=== PATIENT | female | born 1940 | race Caucasian/White ===

== ENCOUNTER 2016-05-12 14:27 | Outpatient (CLI) | payer MEDICARE, OTHER | END 2016-05-12 14:28 | disposition home or self-care (01) | DX: L65.9 Nonscarring hair loss, unspecified (principal) ==

== ENCOUNTER 2016-06-13 14:25 | Outpatient (CLI) | payer MEDICARE, OTHER | END 2016-06-13 14:26 | disposition home or self-care (01) | DX: E78.5 Hyperlipidemia, unspecified (principal) ==

== ENCOUNTER 2016-08-15 15:03 | Outpatient (CLI) | payer MEDICARE, OTHER ==
[2016-08-15 15:40] LABS: ALBUMIN/GLOBULIN RATIO 1.4 (1.0-2.2); BILIRUBIN,TOTAL 0.8 mg/dL (0.2-1.0); CALCIUM 9.2 mg/dL (8.5-10.3); CREATININE 0.9 mg/dL (0.4-1.0); POTASSIUM 4.1 mmol/L (3.5-5.0); TOTAL PROTEIN 6.6 g/dL (6.7-8.2)
[2016-08-15] MEDS ORDERED: GADOBUTROL 7.5 MMOL/7.5 ML VIAL IVP ONE (16:30)
--- NOTE | 2016-08-16 10:10 | MRI Report ---
EXAM: MRI LUMBAR SPINE WITHOUT AND WITH CONTRAST EXAM DATE: 08/15/2016 04:43 PM. CLINICAL HISTORY: 76-year-old woman with chronic low back pain and scoliosis. COMPARISONS: 07/23/2010. TECHNIQUE: Multiplanar, multisequence T1-weighted and fluid-sensitive sequences of the lumbar spine f rom T12 to S1 before and after administration of intravenous contrast. IV contrast: 5.5 cc Gadavist. Other: None. FINDINGS: Surgical: Status post posterior fusion of L2-L5 with pedicle screws and posterior jw on the left onl y, new compared to the 2011 MRI. Spinal Cord: The conus terminates at L1-L2. Cauda equina nerve roots are normal in appearance. No abn ormal enhancement. Alignment: Convex left scoliosis centered at L4 is again demonstrated. Grade 1 retrolisthesis of L1 o n L2 measures approximately 3 mm, progressed compared to 2011 exam, and grade 1 anterolisthesis of L4 on L5 measures approximately 4 mm, unchanged Bone Marrow: Five [id number] lumbar vertebral bodies are present. Prominent degenerative endplat e edema is present at T12-L1, new compared to the 2011 exam. Prominent degenerative endplate edema at L1-L2 and L4-L5 on the prior exam has largely resolved, but Modic type II chronic degenerative and plate changes are present at this level now. Disk Levels/Facets: T12-L1: There is disk desiccation and height loss. Small broad-based disk bulge results in minimal na rrowing of the central canal and left neural foramen, progressed. L1-L2: There is disk desiccation and height loss. Retrolisthesis of L1 and L2 combined with posterior disk osteophyte complex results in mild narrowing of the central canal, not significantly changed. R etrolisthesis and mild facet hypertrophy also result in mild narrowing of the neural foramina bilater ally, unchanged. L2-L3: Interbody spacer is present, but there is moderate to severe disk height loss. Facet hypertrop hy results in mild narrowing of the central canal and mild narrowing of the right neural foramen, not significantly changed. L3-L4: Interbody spacer is present, but there is moderate disk height loss. Facet hypertrophy results in mild narrowing of the central canal, not significantly changed. No significant neural foraminal n arrowing. L4-L5: Interbody spacers present but there is moderate persistent disk height loss, right side worse than left. Anterolisthesis of L4 on L5 combined with small broad-based pseudo-disk bulge and facet hy pertrophy result in mild to moderate narrowing of the central canal, stable or improved. Anterolisthe sis and disk in the subarticular spaces result in moderate narrowing of the right neural foramen and mild narrowing on the left, improved on the right. L5-S1: There is disk desiccation and mild height loss. No significant central canal stenosis. Facet h ypertrophy and disk in the subarticular spaces result in mild to moderate narrowing of the left neura l foramen and mild narrowing on the right, unchanged. Spinal Canal: No enhancing masses within the spinal canal. No epidural abscess. Musculature: Post surgical changes are present in the posterior soft tissues from fusion. Artifact li mits local evaluation. Other: Visualized contents of the abdomen and pelvis are unremarkable. IMPRESSION: 1. Status post L2-L5 fusion with left-sided pedicle screws and posterior wj and interbody spacers, n ew compared to the 07/23/2010 MRI. 2. Convex left scoliosis centered at L4, similar to the 2011 exam. There is also grade 1 retrolisthes is of L1 on L2, progressed, and grade 1 anterolisthesis at L4 on L5, unchanged. 3. Multilevel degenerative disk changes with prominent bony endplate edema at T12-L1, new compared to 2011 exam. Previously seen bone marrow edema at L1-L2 and L4-L5 has largely resolved but now demonst rate chronic peroneal plate changes. 4. Degenerative changes result in the following: - T12-L1: Minimal narrowing of the central canal and left neural foramen, progressed. - L1-L2: Mild narrowing of the central canal, unchanged. Mild narrowing of the neural foramina bilate rally, unchanged. - L2-L3: Mild narrowing of the central canal, unchanged. Mild narrowing of the right neural foramen, unchanged. - L3-L4: Mild narrowing of the central canal, unchanged. - L4-L5: Mild to moderate narrowing of the central canal, stable or improved. Moderate narrowing of t he right neural foramen and mild narrowing on the left, improved. - L5-S1: Mild to moderate narrowing of the left neural foramen and mild narrowing on the right, uncha nged. Comment: The following findings are so common in adults without low back pain that while we report th eir presence, they must be interpreted with caution and in the context of the clinical situation. (Re pio Cabrera et al, Spine 2001) Prevalence of findings in patients without low back pain: Disk degeneration (any evidence): 92% Disk desiccation/T2 signal loss: 83% Disk height loss: 56% Disk bulge: 64% Disk protrusion: 32% Annular tear/high intensity zone: 38% [facility] Referring Provider Line: [phone] SITE ID: [id number]
== END 2016-08-15 15:04 | disposition home or self-care (01) ==
LOC: LAB 15:03
PROVIDERS: ATTEND Physician Assistant Medical
DX: M51.35 Other intervertebral disc degeneration, thoracolumbar region (principal); M51.36 Other intervertebral disc degeneration, lumbar region; M43.16 Spondylolisthesis, lumbar region; M41.86 Other forms of scoliosis, lumbar region; M47.896 Other spondylosis, lumbar region; Z98.1 Arthrodesis status; E78.5 Hyperlipidemia, unspecified
CPT/HCPCS: 72158; 80053; A9585

== ENCOUNTER 2016-08-19 18:49 | Outpatient (CLI) | payer MEDICARE, OTHER ==
--- NOTE | 2016-08-20 09:22 | XRAY Report ---
THREE-VIEW RIGHT KNEE: 08/19/2016 CLINICAL INDICATION: Arthritis. FINDINGS: AP, lateral, sunrise views of the right knee demonstrate moderate osteoarthritis, worst in the lateral femorotibial compartment. There is no evidence of acute fracture. No effusion is seen. IMPRESSION: MODERATE OSTEOARTHRITIS. JOB #: [id number] EXT JOB #:[id number]
== END 2016-08-19 18:50 | disposition home or self-care (01) ==
LOC: DI 18:49
PROVIDERS: ATTEND Physician Assistant Medical
DX: M17.11 Unilateral primary osteoarthritis, right knee (principal)

== ENCOUNTER 2017-02-19 14:22 | Outpatient (CLI) | payer MEDICARE, OTHER ==
--- NOTE | 2017-02-20 16:14 | Mammography Report ---
DIGITAL BILATERAL SCREENING MAMMOGRAM: 02/19/2017 COMPARISON STUDY: Mammogram of 02/11/2016. BREAST DENSITY: The breasts are extremely dense which may limit the sensitivity of mammography. TECHNIQUE: Routine CC and MLO projections were obtained of the breasts. FINDINGS: Parenchymal tissue within both breasts is extremely dense, which lowers the sensitivity of mammography; however, there are no dominant masses, suspicious microcalcifications, or secondary signs of malignancy. In comparison to the previous studies, there are no significant changes. IMPRESSION: No mammographic evidence of malignancy. PLAN: Screening mammography is recommended annually. BIRADS category 1 - negative. STANDARD QUALIFYING STATEMENTS 1. This examination was reviewed with the aid of Computed-Aided Detection (CAD). 2. A negative or benign imaging report should not delay biopsy if clinically suspicious findings are present. Consider surgical consultation if warranted. More than 5% of cancers are not identified by imaging. 3. Dense breasts may obscure an underlying neoplasm. JOB #: [id number] EXT JOB #: [id number] KRISTEN
== END 2017-02-19 14:23 | disposition home or self-care (01) ==
LOC: DI 14:22
PROVIDERS: ATTEND Physician Assistant Medical
DX: Z12.31 Encounter for screening mammogram for malignant neoplasm of breast (principal)
CPT/HCPCS: 77067

== ENCOUNTER 2017-08-04 14:51 | Outpatient (CLI) | payer MEDICARE, OTHER | END 2017-08-04 14:52 | disposition critical access hospital (66) | LOC: EMS 14:51 | PROVIDERS: ATTEND Surgery | DX: R42 Dizziness and giddiness (principal); R11.0 Nausea | CPT/HCPCS: A0425; A0429 ==

== ENCOUNTER 2017-08-04 15:12 | Emergency (ER) | payer MEDICARE, OTHER ==
--- NOTE | 2017-08-04 16:05 | ED Physician Documentation ---
History of Present Illness - Stated complaint Stated Complaint: DIZZY - Chief complaint Chief Complaint: Neuro - History obtained from History obtained from: Patient - History of Present Illness Timing: Yesterday - Additonal information Additional information: 77 y/o female with no particular history has been working hard to clear out her storage unit and get her house on the market and she noticed a firm mass on the medial aspect of the right calf yesterday and she has come in to see her doctor today and was sent to the ED to get duplex scanning to rule out DVT. She has noticed some light headedness when she is up and about and when questioned she has not had as much to drink as usual, she has not been sleeping well and she is not eating much. 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: None : Incontinence HEENT: None Psych: None Musculoskeletal: Osteoarthritis Derm: None - Past Surgical History Past Surgical History: Yes General: Colonoscopy Ortho: Spine surgery /MACHINE STEAK TENDERIZER: Tubal ligation, Hysterectomy - Present Medications Home Medications: Ambulatory Orders Medication Instructions Recorded Confirmed Aspirin [Aspir 81] 81 mg PO DAILY 09/02/12 09/23/14 Calcium [Calcio [place]] 500 mg PO DAILY 09/02/12 09/23/14 Flaxseed Oil 1,000 mg PO DAILY 09/02/12 09/23/14 Multivitamin [Multivitamins] 1 each PO DAILY 09/02/12 09/23/14 [place]-3 Fatty Acids [Fish Oil] 500 mg PO DAILY 09/02/12 09/23/14 Pramipexole [Mirapex] 0.25 mg PO DAILY 09/02/12 09/23/14 Sertraline HCl [Zoloft] 50 mg PO DAILY 09/02/12 09/23/14 Ubidecarenone [Co Q-10] 10 mg PO DAILY 09/02/12 09/23/14 Docusate Sodium 100Mg Capsule 100 mg PO DAILY #10 capsule 09/23/14 [Colace] Ibuprofen 400 mg PO TID #15 tablet 09/23/14 Oxycodone HCl/Acetaminophen 1 each PO Q6H PRN #15 tablet 09/23/14 [Percocet 5-325 mg Tablet] - Allergies Allergies/Adverse Reactions: Allergies Allergy/AdvReac Type Severity Reaction Status Date / Time acetaminophen [From Vicodin] AdvReac Intermediate Nausea Verified 08/04/17 15:23 erythromycin base AdvReac Intermediate Nausea Verified 08/04/17 15:23 [Erythromycin Base] hydrocodone bitartrate * AdvReac Intermediate Nausea Verified 08/04/17 15:23 [From Vicodin] metronidazole AdvReac Intermediate Nausea Verified 08/04/17 15:23 morphine AdvReac Intermediate Nausea Verified 08/04/17 15:23 Penicillins AdvReac Intermediate Nausea Verified 08/04/17 15:23 sulfamethoxazole AdvReac Intermediate Nausea Verified 08/04/17 15:23 [From Bactrim] tramadol AdvReac Intermediate Nausea Verified 08/04/17 15:23 trimethoprim [From Bactrim] AdvReac Intermediate Nausea Verified 08/04/17 15:23 - Social History Does the pt smoke?: No Smoking Status: Never smoker Does the pt drink ETOH?: No Does the pt have substance abuse?: No - Immunizations Immunizations are current?: Yes - POLST Patient has POLST: No PD ED PE NORMAL - Vitals Vital signs reviewed: Yes (systolic htn with wide pulse pressure) - General General: Alert and oriented X 3, No acute distress, Well developed/nourished - HEENT HEENT: Atraumatic, PERRL, EOMI - Respiratory Respiratory: No respiratory distress - Derm Derm: Normal color, Warm and dry, No rash - Extremities Extremities: Other (There is post inflamitory hyperpigmentaion bilaterally and there is no edema there is a firm palpable mass to the medial right calf consistent with a thrombosed vein or a bruise) - Neuro Neuro: No motor deficit, No sensory deficit Eye Opening: Spontaneous Motor: Obeys Commands Verbal: Oriented GCS Score: 15 - Psych Psych: Normal mood, Normal affect Results - Vitals Vitals: Vital Signs - 24 hr 08/04/17 08/04/17 08/04/17 15:12 15:54 17:38 Temperature 36.1 C L Heart Rate 60 70 70 Respiratory 16 16 16 Rate Blood Pressure 155/60 H 145/63 H 173/69 H O2 Saturation 100 100 100 Oxygen O2 Source Room air - EKG (time done) 1536 Rate: Rate (enter#) (59) Rhythm: Sinus tachycardia Ischemia: Normal ST segments Compare to prior EKG: Old EKG unavailable Computer interpretation: Agree with computer - Labs Labs: Laboratory Tests 08/04/17 16:12 Urine Color YELLOW Urine Clarity CLEAR Urine pH 7.0 Ur Specific Wisdom 1.020 Urine Protein NEGATIVE Urine Glucose (UA) NEGATIVE Urine Ketones NEGATIVE Urine Occult Blood NEGATIVE Urine Nitrite NEGATIVE Urine Bilirubin NEGATIVE Urine Urobilinogen 0.2 (NORMAL) Ur Leukocyte Esterase NEGATIVE Ur Microscopic Review NOT INDICATED Urine Culture Comments NOT INDICATED - Rads (name of study) duplex right viens Radiology: Prelim report reviewed (Impression: No evidence for deep venous thrombosis.), EMP read indepedently, See rad report Procedures - IVC sono (time) 1550 Bedside IVC sono: IVC measures (cm) (1.08), IVC collapsed c insp (cm) (complete) , Dehydration (est 1 liter deficit) PD MEDICAL DECISION MAKING - ED course Complexity details: reviewed results, re-evaluated patient, considered differential, d/w patient ED course: 77 y/o female with light headedness and a mass in the leg is dehydrated on interrogation of the IVC. She is able to take PO fluids and this is encouraged. A dupelx study is ordered. The duplex is negative and she is diagnosed with a bruise to the calf and she is able to adequately hydrate in the ED and she feels improved. Departure - Departure Disposition: 01 Home, Self Care Clinical Impression: Dehydration Contusion of right calf Qualifiers: Encounter type: initial encounter Qualified Code(s): S80.11XA - Contusion of right lower leg, initial encounter Condition: Stable Instructions: ED Contusion Lower Ext, ED Dehydration Follow-Up: Mariel Lui PA-C [Primary Care Provider] - Discharge Date/Time: 08/04/17 17:40
[2017-08-04 16:21] LABS: BILIRUBIN,URINE NEGATIVE (NEGATIVE); GLUCOSE, URINE (UA) NEGATIVE (NEGATIVE); KETONES,URINE (UA) NEGATIVE (NEGATIVE); LEUKOCYTE ESTERASE, URINE NEGATIVE (NEGATIVE); NITRITE,URINE NEGATIVE (NEGATIVE); OCCULT BLOOD,URINE NEGATIVE (NEGATIVE); PROTEIN,URINE NEGATIVE (NEGATIVE); UROBILINOGEN,URINE 0.2 (NORMAL) E.U./dL (NORMAL)
[2017-08-04 16:36] LABS: CLARITY,URINE CLEAR (CLEAR)
--- NOTE | 2017-08-04 17:00 | Ultrasound Report ---
EXAM: RIGHT LOWER EXTREMITY VENOUS ULTRASOUND EXAM DATE: 08/04/2017 04:46 PM. CLINICAL HISTORY: Tender thrombosed calf vein. COMPARISON: None. TECHNIQUE: Real-time sonographic vascular imaging was performed by the medical records assistant through the lower extremity utilizing both color-flow and Doppler spectral analysis. Multiple ict sales representative static marcia ges were saved for review. FINDINGS: Common Femoral Vein (CFV): Normal. CFV-GSV Junction: Normal. Profunda Femoral Vein (PFV): Normal. Femoral Vein (FV) Prox: Normal. Femoral Vein (FV) Mid: Normal. Femoral Vein (FV) Dist: Normal. Popliteal Vein: Normal. Posterior Tibial Veins: Normal. Peroneal Veins: Normal. Contralateral Side CFV: Normal. Other: None. IMPRESSION: No evidence for deep venous thrombosis. [facility] Referring Provider Line: [phone] SITE ID: [id number]
[2017-08-04 17:41] VITALS: BP 173/69
== END 2017-08-04 17:40 | disposition home or self-care (01) ==
LOC: EDUNIT# → ED 15:12
DX: E86.0 Dehydration (principal); S80.11XA Contusion of right lower leg, initial encounter; Z79.82 Long term (current) use of aspirin
CPT/HCPCS: 81001; 81003; 87086; 93005; 99284

== ENCOUNTER 2018-03-17 15:31 | Outpatient (CLI) | payer MEDICARE, OTHER ==
[2018-03-17 16:16] LABS: BASOPHILS % (AUTO) 0.4 %; EOSINOPHILS # (AUTO) 0.1 10^3/uL (0.0-0.7); EOSINOPHILS % (AUTO) 1.3 %; HGB - HEMOGLOBIN 13.9 g/dL (12.0-16.0); LYMPHOCYTES # (AUTO) 1.6 10^3/uL (1.5-3.5); LYMPHOCYTES % (AUTO) 32.3 %; MEAN CORPUSCULAR HEMOGLOBIN 27.9 pg (27.0-31.0); MEAN CORPUSCULAR HGB CONC 32.5 g/dL (32.0-36.0); MEAN CORPUSCULAR VOLUME 85.9 fL (81.0-99.0); MONOCYTES # (AUTO) 0.2 10^3/uL (0.0-1.0); PLT - PLATELET COUNT 211 10^3/uL (130-450); RED BLOOD COUNT 4.99 10^6/uL (4.20-5.40); RED CELL DISTRIBUTION WIDTH 13.9 % (12.0-15.0)
[2018-03-17 16:30] LABS: ALBUMIN 4.1 g/dL (3.2-5.5); ALBUMIN/GLOBULIN RATIO 1.5 (1.0-2.2); ALKALINE PHOSPHATASE 98 IU/L (42-121); ALT ALANINE AMINOTRANSFERASE 28 IU/L (10-60); AST ASPARTATE AMINOTRANSFERASE 30 IU/L (10-42); BILIRUBIN,TOTAL 0.9 mg/dL (0.2-1.0); BUN - BLOOD UREA NITROGEN 19 mg/dL (6-20); CALCIUM 8.8 mg/dL (8.5-10.3); CARBON DIOXIDE - CO2 27 mmol/L (21-32); CHLORIDE 104 mmol/L (101-111); CHOLESTEROL 254 mg/dL; CREATININE 0.8 mg/dL (0.4-1.0); GFR - MDRD 69 (>89); GLUCOSE 92 mg/dL (70-100); HDL CHOLESTEROL 86 mg/dL; LDL CHOLESTEROL,CALCULATED 153 mg/dL; LDL/HDL RATIO 1.8 (<4.4); SODIUM 138 mmol/L (135-145); TOTAL PROTEIN 6.9 g/dL (6.7-8.2); VLDL CHOLESTEROL 15 mg/dL
[2018-03-17 16:41] LABS: THYROID STIMULATING HORMONE 5.67 uIU/mL (0.34-5.60)
[2018-03-17 16:47] LABS: FERRITIN 43.8 ng/mL (11.0-306.8)
== END 2018-03-17 15:32 | disposition home or self-care (01) ==
LOC: LAB 15:31
PROVIDERS: ATTEND Physician Assistant Medical
DX: E78.5 Hyperlipidemia, unspecified (principal); L65.9 Nonscarring hair loss, unspecified
CPT/HCPCS: 36415; 80053; 80061; 82728; 83721; 84443; 85025

== ENCOUNTER 2018-04-30 14:07 | Outpatient (CLI) | payer MEDICARE, OTHER ==
[2018-04-30 19:12] LABS: BASOPHILS % (AUTO) 0.5 %; EOSINOPHILS # (AUTO) 0.1 10^3/uL (0.0-0.7); EOSINOPHILS % (AUTO) 1.2 %; HGB - HEMOGLOBIN 13.7 g/dL (12.0-16.0); LYMPHOCYTES # (AUTO) 1.6 10^3/uL (1.5-3.5); LYMPHOCYTES % (AUTO) 30.1 %; MEAN CORPUSCULAR HEMOGLOBIN 27.9 pg (27.0-31.0); MEAN CORPUSCULAR HGB CONC 32.1 g/dL (32.0-36.0); MEAN PLATELET VOLUME 8.5 fL (7.9-10.8); MONOCYTES # (AUTO) 0.3 10^3/uL (0.0-1.0); MONOCYTES % (AUTO) 5.1 %; NEUTROPHILS # (AUTO) 3.3 10^3/uL (1.5-6.6); NEUTROPHILS % (AUTO) 63.1 %; PLT - PLATELET COUNT 216 10^3/uL (130-450); RED BLOOD COUNT 4.91 10^6/uL (4.20-5.40); WHITE BLOOD COUNT 5.2 x10^3/uL (4.8-10.8)
[2018-04-30 20:00] LABS: ALBUMIN 3.9 g/dL (3.2-5.5); ALBUMIN/GLOBULIN RATIO 1.3 (1.0-2.2); CALCIUM 9.1 mg/dL (8.5-10.3); CREATININE 0.9 mg/dL (0.4-1.0); TOTAL PROTEIN 6.9 g/dL (6.7-8.2)
[2018-04-30 20:14] LABS: THYROID STIMULATING HORMONE 4.41 uIU/mL (0.34-5.60)
[2018-04-30 20:15] LABS: FREE T4 (FREE THYROXINE) 0.79 ng/dL (0.58-1.64)
== END 2018-04-30 14:08 | disposition home or self-care (01) ==
LOC: LAB.WCP 14:07
PROVIDERS: ATTEND Physician Assistant
DX: L03.115 Cellulitis of right lower limb (principal); E03.9 Hypothyroidism, unspecified
CPT/HCPCS: 36415; 80053; 82306; 84439; 84443; 84481; 85025

== ENCOUNTER 2018-05-11 21:58 | Outpatient (CLI) | payer MEDICARE, OTHER ==
--- NOTE | 2018-05-12 15:25 | Ultrasound Report ---
Reason: VENOUS STASIS EDEMA WITH ULCER,CELLULITIS,LEG,RIGH Procedure Date: 05/11/2018 Accession Number: [id number] / [id number] Procedure: US - Ankle Brachial Index CPT Code: FULL RESULT: EXAM: BILATERAL ANKLE/BRACHIAL INDEX EXAM DATE: 05/11/2018 10:37 PM. CLINICAL HISTORY: VENOUS STASIS EDEMA WITH ULCER,CELLULITIS,LEG, right. COMPARISON: ANKLE BRACHIAL INDEX 01/14/2017 2:15 PM. TECHNIQUE: A blood pressure cuff and pulse volume recording Doppler ultrasound was used to evaluate the arterial pressures in the arms and ankle. No images were acquired. FINDINGS: Brachial pressure: Right brachial artery: 128/29 mmHg. Left brachial artery: 147/49 mmHg. Right ankle pressures: Dorsalis pedis artery: 129/66 mmHg Left ankle pressures: Dorsalis pedis artery: 124/65 mmHg Calf arteries: RIGHT: TUG MASTER 58 cm/s peak systolic velocity, monophasic waveform. Dorsalis pedis artery 63 cm/s with monophasic waveform. LEFT: Posterior tibial artery 66 cm/s with monophasic waveform. Left dorsalis pedis artery 13 cm/s with monophasic waveform. IMPRESSION: 1. Right ankle/brachial index: 0.9, acceptable. 2. Left ankle/brachial index: 0.8 is abnormal, indicating some arterial disease. 3. Monophasic spectral Doppler waveforms within bilateral posterior tibial and dorsalis pedis arteries. ANKLE/BRACHIAL INDEX REFERENCE STANDARDS 1.0-1.4: Normal 0.90-0.99: Borderline < 0.9: Abnormal [facility]
== END 2018-05-11 21:59 | disposition home or self-care (01) ==
LOC: DI 21:58
PROVIDERS: ATTEND Physician Assistant Medical
DX: I87.319 Chronic venous hypertension (idiopathic) with ulcer of unspecified lower extremity (principal); L03.115 Cellulitis of right lower limb; I70.202 Unspecified atherosclerosis of native arteries of extremities, left leg
CPT/HCPCS: 93922

== ENCOUNTER 2018-05-13 15:30 | Outpatient (CLI) | payer MEDICARE, OTHER ==
--- NOTE | 2018-05-14 09:25 | Mammography Report ---
Reason: Annual Screening Procedure Date: 05/13/2018 Accession Number: [id number] / [id number] Procedure: ZACH - Screening Mammo Dig Bilat CPT Code: FULL RESULT: EXAM: Screening Mammo Dig Bilat DATE: 05/13/2018 4:06 PM CLINICAL HISTORY: Screening encounter. Personal history of uterine cancer. History of breast biopsy in the 1970s, benign. Family history of breast cancer in the mother at age 79. TECHNIQUE: Bilateral CC, right laterally exaggerated CC, right MLO and left MLO views were obtained. The combination of views is the best possible imaging outcome due to kyphosis. COMPARISON: 02/19/2017 through 07/23/2010. FINDINGS: The breasts demonstrate heterogeneously dense fibroglandular parenchyma bilaterally. There are typically benign coarse calcifications. A 1 cm mass in the upper central left breast demonstrates long-term stability, typically benign. No suspicious masses, clustered microcalcifications, or regions of architectural distortion are identified. IMPRESSION: Benign findings RECOMMENDATION: Routine annual screening unless otherwise clinically indicated. BIRADS CATEGORY 2: Benign findings STANDARD QUALIFYING STATEMENTS: 1. This examination was reviewed with the aid of Computer-Aided Detection (CAD). 2. A negative or benign imaging report should not delay biopsy if clinically suspicious findings are present. Consider surgical consultation if warrented. More than 5% of cancers are not identified by imaging. 3. Dense breasts may obscure an underlying neoplasm.
== END 2018-05-13 15:31 | disposition home or self-care (01) ==
LOC: DI 15:30
DX: Z12.31 Encounter for screening mammogram for malignant neoplasm of breast (principal); Z80.3 Family history of malignant neoplasm of breast; Z85.42 Personal history of malignant neoplasm of other parts of uterus
CPT/HCPCS: 77067

== ENCOUNTER 2018-05-26 14:40 | Outpatient (CLI) | payer MEDICARE, OTHER | END 2018-05-26 14:41 | disposition home or self-care (01) | LOC: LAB.WCP 14:40 | PROVIDERS: ATTEND Physician Assistant Medical | DX: E03.9 Hypothyroidism, unspecified (principal) | CPT/HCPCS: 36415; 84443 ==

== ENCOUNTER 2018-06-09 22:03 | Outpatient (CLI) | payer MEDICARE, OTHER ==
--- NOTE | 2018-06-10 01:00 | Ultrasound Report ---
Reason: EDEMA LEG Procedure Date: 06/09/2018 Accession Number: [id number] / [id number] Procedure: US - Duplex Ext Veins Right CPT Code: FULL RESULT: EXAM: RIGHT LOWER EXTREMITY VENOUS ULTRASOUND EXAM DATE: 06/09/2018 11:58 PM. CLINICAL HISTORY: Edema leg. COMPARISON: DUPLEX EXT VEINS RIGHT 08/04/2017 4:29 PM. TECHNIQUE: Real-time sonographic vascular imaging was performed by the golf course ranger through the lower extremity utilizing both color-flow and Doppler spectral analysis. Multiple motor vehicle field representative static images were saved for review. FINDINGS: Common Femoral Vein (CFV): Normal. CFV-GSV Junction: Normal. Profunda Femoral Vein (PFV): Normal. Femoral Vein (FV) Prox: Normal. Femoral Vein (FV) Mid: Normal. Femoral Vein (FV) Dist: Normal. Popliteal Vein: Normal. Calf Veins: Proximal portions are patent. Distal portions could not be evaluated due to bandage material. Contralateral Common Femoral Vein: Without thrombus. Other: Borderline enlarged right-sided groin lymph node measuring 1.5 x 1.1 x 3.3 cm. Normal fatty hilum. Additional borderline enlarged 1.6 x 0.7 x 1.1 cm lymph node within the right groin as well. IMPRESSION: No evidence for deep venous thrombosis. [facility] The call report notification system was initiated by Dr. Leonardo Gleason at 12:58 AM on 06/10/2018. The above call report findings were discussed with Mariel Lui (PAC) by Dr. Leonardo Gleason at 01:00 AM on 06/10/2018.
== END 2018-06-09 22:04 | disposition home or self-care (01) ==
LOC: DI 22:03
PROVIDERS: ATTEND Physician Assistant Medical
DX: R60.0 Localized edema (principal)

== ENCOUNTER 2018-07-29 23:28 | Outpatient (CLI) | payer MEDICARE, OTHER ==
--- NOTE | 2018-07-30 01:33 | Ultrasound Report ---
Reason: EDEMA LEFT LEG Procedure Date: 07/29/2018 Accession Number: [id number] / [id number] Procedure: US - Duplex Ext Veins Left CPT Code: FULL RESULT: EXAM: LEFT LOWER EXTREMITY VENOUS ULTRASOUND EXAM DATE: 07/29/2018 11:59 PM. CLINICAL HISTORY: EDEMA LEFT LEG. COMPARISON: None. TECHNIQUE: Real-time sonographic vascular imaging was performed by the electrical experimental mechanic through the lower extremity utilizing both color-flow and Doppler spectral analysis. Multiple players club representative static images were saved for review. FINDINGS: Common Femoral Vein (CFV): No evidence of thrombus. CFV-GSV Junction: No evidence of thrombus. Profunda Femoral Vein (PFV): No evidence of thrombus. Femoral Vein (FV) Prox: No evidence of thrombus. Femoral Vein (FV) Mid: No evidence of thrombus. Femoral Vein (FV) Dist: No evidence of thrombus. Popliteal Vein: No evidence of thrombus. Posterior Tibial Veins: No evidence of thrombus. Peroneal Veins: No evidence of thrombus. Contralateral CFV: No evidence of thrombus. Other: Mild subcutaneous edema overlying the left calf. IMPRESSION: No evidence for deep venous thrombosis. [facility] The call report notification system was initiated by Dr. Leonardo Gleason at 01:32 AM on 07/30/2018.
== END 2018-07-29 23:29 | disposition home or self-care (01) ==
LOC: DI 23:28
PROVIDERS: ATTEND Physician Assistant Medical
DX: R60.0 Localized edema (principal)

== ENCOUNTER 2018-12-22 12:30 | Day surgery (SDC) | payer MEDICARE, OTHER ==
[~2018-12-22 12:30] MED LIST: SODIUM/POTASSIUM/MAG SULFATES 354 ML PREP KIT PO SCH
[2018-12-22] MEDS ORDERED: LACTATED RINGERS 1,000 ML IV ONE (13:07)
[2018-12-22 15:05] VITALS: BP 124/72
== END 2018-12-22 12:31 | disposition home or self-care (01) ==
LOC: SDS 12:30
PROVIDERS: ATTEND Surgery
PROC: 0DJD8ZZ Inspection of Lower Intestinal Tract, Via Natural or Artificial Opening Endoscopic (ICD-10-PCS; principal; 2018-12-22 13:15)
DX: Z12.11 Encounter for screening for malignant neoplasm of colon (principal); K64.8 Other hemorrhoids; K59.8 Other specified functional intestinal disorders; K62.89 Other specified diseases of anus and rectum; E03.9 Hypothyroidism, unspecified; F41.9 Anxiety disorder, unspecified; G25.81 Restless legs syndrome; R60.0 Localized edema; Z86.010 Personal history of colon polyps
CPT/HCPCS: A9270; G0105; J7120

== ENCOUNTER 2019-04-07 15:16 | Outpatient (CLI) | payer MEDICARE, OTHER ==
[2019-04-07 15:33] LABS: BASOPHILS % (AUTO) 0.3 %; EOSINOPHILS % (AUTO) 0.6 %; HGB - HEMOGLOBIN 14.5 g/dL (12.0-16.0); LYMPHOCYTES # (AUTO) 2.4 10^3/uL (1.5-3.5); LYMPHOCYTES % (AUTO) 34.4 %; MEAN CORPUSCULAR HEMOGLOBIN 27.9 pg (27.0-31.0); MEAN CORPUSCULAR HGB CONC 32.5 g/dL (32.0-36.0); MEAN CORPUSCULAR VOLUME 85.8 fL (81.0-99.0); MEAN PLATELET VOLUME 9.5 fL (7.9-10.8); MONOCYTES # (AUTO) 0.4 10^3/uL (0.0-1.0); MONOCYTES % (AUTO) 5.6 %; NEUTROPHILS # (AUTO) 4.1 10^3/uL (1.5-6.6); NEUTROPHILS % (AUTO) 58.8 %; PLT - PLATELET COUNT 228 10^3/uL (130-450); RED CELL DISTRIBUTION WIDTH 13.4 % (12.0-15.0); WHITE BLOOD COUNT 6.9 x10^3/uL (4.8-10.8)
[2019-04-07 15:49] LABS: ALBUMIN 4.6 g/dL (3.2-5.5); ALBUMIN/GLOBULIN RATIO 1.5 (1.0-2.2); ALKALINE PHOSPHATASE 98 IU/L (42-121); ALT ALANINE AMINOTRANSFERASE 27 IU/L (10-60); AST ASPARTATE AMINOTRANSFERASE 30 IU/L (10-42); BUN - BLOOD UREA NITROGEN 25 mg/dL (6-20); CALCIUM 9.1 mg/dL (8.5-10.3); CARBON DIOXIDE - CO2 25 mmol/L (21-32); CHLORIDE 104 mmol/L (101-111); CHOL/HDL RATIO 2.9 (<4.4); CHOLESTEROL 291 mg/dL; CREATININE 0.8 mg/dL (0.4-1.0); GFR - MDRD 69 (>89); GLUCOSE 97 mg/dL (70-100); HDL CHOLESTEROL 101 mg/dL; LDL CHOLESTEROL,CALCULATED 171 mg/dL; LDL/HDL RATIO 1.7 (<4.4); SODIUM 142 mmol/L (135-145); TOTAL PROTEIN 7.6 g/dL (6.7-8.2); VLDL CHOLESTEROL 19 mg/dL
== END 2019-04-07 15:17 | disposition home or self-care (01) ==
LOC: LAB 15:16
PROVIDERS: ATTEND Physician Assistant Medical
DX: E78.5 Hyperlipidemia, unspecified (principal); E03.9 Hypothyroidism, unspecified; K92.1 Melena
CPT/HCPCS: 36415; 80053; 80061; 83721; 84443; 85025

== ENCOUNTER 2019-04-13 08:00 | Outpatient (CLI) | payer MEDICARE, OTHER ==
[2019-04-13 20:09] LABS: FREE T4 (FREE THYROXINE) 1.1 ng/dL (0.58-1.64)
== END 2019-04-13 23:59 | disposition home or self-care (01) ==
LOC: LAB.WCP 08:00
PROVIDERS: ATTEND Physician Assistant Medical
DX: E03.9 Hypothyroidism, unspecified (principal); R41.3 Other amnesia
CPT/HCPCS: 36415; 82607; 84439; 84481

== ENCOUNTER 2019-04-13 15:50 | Outpatient (CLI) | payer MEDICARE, OTHER ==
--- NOTE | 2019-04-14 13:04 | XRAY Report ---
Reason: CLEMENTE Procedure Date: 04/13/2019 Accession Number: [id number] / [id number] Procedure: WCP - Chest 2 View X-Ray CPT Code: 68114 Final Report FULL RESULT: EXAM: CHEST RADIOGRAPHY EXAM DATE: 04/13/2019 03:50 PM. CLINICAL HISTORY: Dyspnea on exertion COMPARISON: None. TECHNIQUE: 2 views. FINDINGS: Lungs/Pleura: Normal volumes. No focal infiltrate or bronchial wall thickening. No evidence of edema. No pleural effusion or pneumothorax. Mediastinum: Normal cardiomediastinal contour. Other: Degenerative changes in the spine. Mild S-shaped curvature of the thoracolumbar spine. Posterior fusion hardware in the cervical and upper thoracic spine. Partially imaged posterior fusion hardware in the lumbar spine. IMPRESSION: No acute cardiopulmonary abnormality. [facility]
== END 2019-04-13 23:59 | disposition home or self-care (01) ==
LOC: DI.WCP 15:50
PROVIDERS: ATTEND Physician Assistant Medical
DX: R06.09 Other forms of dyspnea (principal)
CPT/HCPCS: 71046

== ENCOUNTER 2019-04-26 13:39 | Outpatient (CLI) | payer MEDICARE, OTHER ==
[2019-04-26] MEDS ORDERED: GADOBUTROL 7.5 MMOL/7.5 ML VIAL ONE (16:23)
[2019-04-26] MEDS ORDERED: GADOBUTROL 7.5 MMOL/7.5 ML VIAL IVP ONE (17:15)
--- NOTE | 2019-04-26 18:57 | MRI Report ---
Reason: MEMORY LOSS Procedure Date: 04/26/2019 Accession Number: [id number] / [id number] Procedure: MRI - Brain W/WO CPT Code: Final Report FULL RESULT: EXAM: MRI BRAIN WITHOUT AND WITH CONTRAST EXAM DATE: 04/26/2019 05:42 PM. CLINICAL HISTORY: Memory loss. Worsening memory over the past year. COMPARISON: None. TECHNIQUE: Multiplanar, multisequence T1-weighted and fluid-sensitive MR sequences of the brain were performed before and after administration of intravenous contrast. Sequences optimized for routine evaluation. Other: None. IV Contrast: 5 cc Gadavist. FINDINGS: Brain Volume: Normal for age. Parenchyma: No acute hemorrhage, mass, or infarct. Minimal confluent periventricular white matter with scattered punctate deep and subcortical white matter T2/FLAIR bright signal is seen in the cerebral hemispheres. No abnormal enhancement. Ventricles/Cisterns: No hydrocephalus. No abnormal extra-axial fluid collection or hemorrhage. Orbits: Unremarkable. Note is made of bilateral lens removal. Sella Turcica: The pituitary gland, cavernous sinuses, suprasellar cistern and optic chiasm are unremarkable. IAC: Symmetric and unremarkable. Vasculature: Normal signal flow void is seen in the major arterial structures at the skull base. The dural sinuses are patent and enhance normally. Sinuses: Partial opacification is seen throughout right mastoid air cells and involving inferior left mastoid air cells. Mild mucosal thickening is seen inferiorly in the maxillary antra. Bones: No focal pathologic appearing marrow signal changes. Postoperative change is seen in partially visualized cervical spine. Other: The visualized nasopharynx and infratemporal fossa are unremarkable. IMPRESSION: 1. No acute intracranial abnormality. No infarct, mass, hemorrhage, or abnormal enhancement. 2. Minimal white matter T2/FLAIR bright signal is seen in the cerebral hemispheres. This is not an unexpected finding in a patient of age 79 years. This can be seen secondary to small vessel ischemic change. 3. Opacification is seen throughout right mastoid air cells and inferior left mastoid air cells. [facility]
== END 2019-04-26 13:40 | disposition home or self-care (01) ==
LOC: DI 13:39
PROVIDERS: ATTEND Physician Assistant Medical
DX: R41.3 Other amnesia (principal)
CPT/HCPCS: 70553; A9585

== ENCOUNTER 2019-08-11 19:02 | Outpatient (CLI) | payer MEDICARE, OTHER ==
--- NOTE | 2019-08-11 21:22 | Ultrasound Report ---
Reason: ACUTE AMBOLISM AND THROMBOSIS OF UNSPECIFIED VEIN. DVT Procedure Date: 08/11/2019 Accession Number: [id number] / [id number] Procedure: US - Duplex Ext Veins Right CPT Code: Final Report FULL RESULT: EXAM: RIGHT LOWER EXTREMITY VENOUS ULTRASOUND EXAM DATE: 08/11/2019 08:06 PM. CLINICAL HISTORY: Right leg pain COMPARISON: DUPLEX EXT VEINS RIGHT 06/09/2018 11:26 PM. TECHNIQUE: Real-time sonographic vascular imaging was performed by the bicycle fitter through the lower extremity utilizing both color-flow and Doppler spectral analysis. Multiple computer help desk representative static images were saved for review. FINDINGS: Common Femoral Vein (CFV): Normal. CFV-GSV Junction: Normal. Profunda Femoral Vein (PFV): Normal. Femoral Vein (FV) Prox: Normal. Femoral Vein (FV) Mid: Normal. Femoral Vein (FV) Dist: Normal. Popliteal Vein: Normal. Posterior Tibial Veins: Normal. Peroneal Veins: Normal. Other: None. IMPRESSION: No evidence for deep venous thrombosis. [facility]
== END 2019-08-11 19:03 | disposition home or self-care (01) ==
LOC: DI 19:02
PROVIDERS: ATTEND Registered Nurse
DX: I82.491 Acute embolism and thrombosis of other specified deep vein of right lower extremity (principal)

== ENCOUNTER 2019-11-01 14:18 | Outpatient (CLI) | payer MEDICARE, OTHER ==
--- NOTE | 2019-11-01 17:07 | DEXA Report ---
PROCEDURE: Dexa Spine and/or Hip INDICATIONS: POST MENOPAUSAL TECHNIQUE: Dual energy x-ray absorptiometry (DXA) was performed on a [employer] System. Regions measur ed are the AP Spine, femoral neck, and if needed forearm. COMPARISON: 08/21/2009, not currently available for review FINDINGS: Left Hip: Bone Mineral Density 1.005 g/cm/cm,T score 0, within normal limits Left Femoral Neck: Bone Mineral Density 0.872 g/cm/cm, T score -1.2, minimal osteopenia Left forearm: Bone Mineral Density 0.471 g/cm/cm, T score -3.4, osteoporosis (T score greater or equal to -1.0: NORMAL) (T score from -1.1 to -2.4: OSTEOPENIA) (T score less than or equal to -2.5 to: OSTEOPOROSIS) Impression: Osteoporosis within the left forearm with minimal osteopenia in the left femoral neck. Patients with diagnosis of osteoporosis or osteopenia should have regular bone mineral density assess ment. For those eligible for Medicare, routine testing is allowed once every 2 years. Testing frequ ency can be increased for patients who have rapidly progressing disease or for those who are receivin g medical therapy to restore bone mass. Reviewed by: Meaghan Blakely MD on 11/01/2019 5:05 PM PDT Approved by: Meaghan Blakely MD on 11/01/2019 5:05 PM PDT Station ID: [id number]
== END 2019-11-01 14:19 | disposition home or self-care (01) ==
LOC: DI 14:18
PROVIDERS: ATTEND Physician Assistant Medical
DX: M81.0 Age-related osteoporosis without current pathological fracture (principal); M85.852 Other specified disorders of bone density and structure, left thigh; Z78.0 Asymptomatic menopausal state
CPT/HCPCS: 77080; 77081

== ENCOUNTER 2019-11-23 14:16 | Outpatient (CLI) | payer MEDICARE, OTHER ==
--- NOTE | 2019-11-28 12:07 | Mammography Report ---
BILATERAL DIGITAL SCREENING MAMMOGRAM 3D/2D: 11/23/2019 CLINICAL: Routine screening. Comparison is made to exams dated: 05/13/2018 mammogram, 04/22/2016 mammogram, 02/11/2016 mammogram, mammogram, 11/08/2013 mammogram, and 09/17/2012 mammogram - [facility]. There are scattered fibroglandular elements in both breasts. No significant masses, calcifications, or other findings are seen in either breast. There has been no significant interval change. IMPRESSION: NEGATIVE There is no mammographic evidence of malignancy. A 1 year screening mammogram is recommended. This exam was interpreted at Station ID: [id number]. NOTE: For mammograms, a report in lay terms will be sent to the patient. Approximately 15% of breast malignancies will not be visualized mammographically. In the management of a palpable breast mass, a negative mammogram must not discourage biopsy of a clinically suspicious lesion. Electronically Signed By: Zackery crook/katelyn:11/25/2019 08:04:30 ACR BI-RADS Category 1: Negative 3341F PARENCHYMAL PATTERN: (A) - The breast(s) demonstrate(s) scattered fibroglandular densities. BI-RADS CATEGORY: (1) - 1 RECOMMENDATION: (ANNUAL) - Recommend routine annual screening mammography. [id number] 1 year screening LATERALITY: (B)
== END 2019-11-23 14:17 | disposition home or self-care (01) ==
LOC: DI 14:16
DX: Z12.31 Encounter for screening mammogram for malignant neoplasm of breast (principal)
CPT/HCPCS: 77067

== ENCOUNTER 2019-11-29 19:24 | Outpatient (CLI) | payer MEDICARE, OTHER ==
[2019-11-29 20:04] LABS: ALBUMIN 3.8 g/dL (3.2-5.5); ALBUMIN/GLOBULIN RATIO 1.5 (1.0-2.2); BILIRUBIN,TOTAL 0.7 mg/dL (0.2-1.0); CALCIUM 8.7 mg/dL (8.5-10.3); CREATININE 0.8 mg/dL (0.4-1.0); TOTAL PROTEIN 6.4 g/dL (6.7-8.2)
== END 2019-11-29 19:25 | disposition home or self-care (01) ==
LOC: LAB 19:24
PROVIDERS: ATTEND Family Medicine
DX: R07.89 Other chest pain (principal)
CPT/HCPCS: 36415; 80053; 84484; 85651

== ENCOUNTER 2020-01-10 14:45 | Outpatient (CLI) | payer MEDICARE, OTHER ==
--- NOTE | 2020-01-10 16:54 | XRAY Report ---
PROCEDURE: Chest 2 View X-Ray INDICATIONS: COUGH TECHNIQUE: 2 view(s) of the chest. COMPARISON: 04.13.19 FINDINGS: Surgical changes and devices: Cervical spine fusion hardware is present. Lumbar spine fusion hardware is present. Lungs and pleura: No pleural effusions or pneumothorax. Lungs are clear. Mediastinum: Mediastinal contours are normal. Heart size is normal. Bones and chest wall: No suspicious bony abnormalities. Soft tissues appear unremarkable. IMPRESSION: No acute process. Reviewed by: Alberto Jade MD on 01/10/2020 4:52 PM PDT Approved by: Alberto Jade MD on 01/10/2020 4:52 PM PDT Station ID: [id number]
== END 2020-01-10 23:59 | disposition home or self-care (01) ==
LOC: DI.WCP 14:45
PROVIDERS: ATTEND Physician Assistant Medical
DX: R05 Cough (principal)
CPT/HCPCS: 71046; 87070; 87205

== ENCOUNTER 2020-01-30 15:45 | Outpatient (CLI) | payer MEDICARE, OTHER ==
[2020-01-30 16:16] VITALS: BP 149/89
--- NOTE | 2020-01-30 16:41 | SLEEP CARE CONSULTATION ---
History of Present Illness Service Date and Time: 01/30/2020 0047 Reason for Visit: New patient Chief Complaint: reports: Insomnia, Unrefreshed sleep, Snoring, Excessive daytime sleepiness, Fatigue (occasionally), Frequent awakenings at night, Other (RLS). denies: Observed pauses in breathing Date of Onset: several years Usual bedtime: 0100 on average Time it takes to fall asleep: couple of minutes Snores at night: No Observed to quit breathing while asleep: No Sleeps alone due to snoring: No Number of times waking at night: 2 times Reasons for waking at night: reports: Bathroom. denies: Choking, Snoring, Gasping for air Toss, Turn, or Twitch while sleeping: Yes Recalls having dreams: Yes Usually gets out of bed at: 0800 (laying for about 30 minutes after awakening Feels refreshed in the morning: No Morning headache: No Sleepy or fatigued during the day: Yes Ever fallen asleep while driving: No Takes day naps: No Dreams during day naps: No Prior sleep studies: No Additional HPI information: I had the pleasure of seeing MARI GERMAIN today regarding the possibility of her having a sleep disorder. Her current complaints are insomnia, snoring, unrefreshed sleep, frequent night awakenings and excessive daytime sleepiness. She has been only sleeping 3-4 hours nightly for many years. She has a history of thyroid disease and restless leg syndrome. - Parasomnia Symptoms Ever been unable to move upon waking from sleep: No Walks in sleep: No Talks in sleep: No Ever acted out dreams in sleep: No Ever felt weak in the knees when startled or emotional: No Bothered by creepy, crawly, restless sensations in legs: Yes (has history of RLS) Problems with memory or concentration: Yes Subjective Initial [place] Sleepiness Scale score: 5 Past Medical History Past Medical History: reports: Hypothyroidism, Depression, Other (Restless leg syndrome). 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 Patient is / and lives in [place]. Have you smoked in the past 12 months: No Cigarettes per day (20/pack): 10 Years of smokin Quit date: 1999 Smoking Pack Years: 10.0 Alcohol use: No Caffeine use: No Family History Family history of sleep disordered breathing: No Allergies and Home Medications Drug allergies reviewed: Yes (see list in chart) Home medication list reviewed: Yes Allergy and home medication list: pramipexole 1.25 mg dithydrochloride for RLS Levothyroxine 50 mcg insumatrazodone 50 mg as needed cyclobenzaprine 10 mg as needed oxybutynin 5 mg as needed Review of Systems Cardiovascular: denies: high blood pressure, palpitations, chest pain, irregular heart rate or pulse Respiratory: denies: shortness of breath Gastrointestinal: reports: heartburn. denies: difficulty swallowing Urinary: reports: incontinence, frequency, urgency Neurological: reports: gait or balance problems. denies: headaches, seizure, head trauma Psychiatric: reports: depression, claustrophobia. denies: Attention Deficit Hyperactivity, anxiety, mood disorder Ear/Nose/Throat: reports: tonsillectomy, wisdom teeth removed. denies: nasal congestion, sinus problems, nose bleeds, dry mouth/throat, injury to nose Endocrine: reports: thyroid disease Musculoskeletal: reports: joint pain, back pain, muscle pain or cramping, mobility problems Immunologic: reports: allergies to food or environment Physical Exam Blood Pressure: 149/89 Cuff size: wrist Heart Rate: 65 O2 Saturation: 94 Height: 4 ft 11 in Weight: 115 lb Body Mass Index: 23.2 BMI Classification: Healthy weight Neck circumference: 12.75 (inches) HEENT: No craniofacial malformation Nostrils: patent to airflow Turbinates: normal Septum: midline Mouth and throat: narrow oropharynx Uvula visualization: 25% Mallampati Class III Tongue: normal in size Tonsils: absent bilaterally Chin and jaw: normal size and position Neck: normal w/o lymphadenopathy or thyromegaly Heart: regular rate and rhythm Lungs: clear bilaterally Impression and Plan 1. Suspected Obstructive Sleep Apnea-Hypopnea Syndrome, as suggested by a history of snoring, frequent awakening during the night, unrefreshed sleep, cognitive impairment, and excessive daytime sleepiness. I reviewed with patient that a narrow oropharynx and obesity are common predisposing factors for obstructive sleep apnea-hypopnea syndrome. She has trouble sleeping more than 3- 4 hours nightly. I recommend proceeding to polysomnography to confirm the diagnosis and to assess severity. If the patient has significant sleep disordered breathing, a manual CPAP titration study will also be performed to find the optimal treatment pressure. I informed the patient of what the sleep studies involve and after some discussion, obtained agreement to proceed. The pathophysiology of obstructive sleep apnea-hypopnea syndrome was discussed with the patient and health risks of cardiovascular and cerebrovascular disease if not treated. AAS brochure for obstructive sleep apnea-hypopnea syndrome given and reviewed. Risks of drowsy driving discussed in detail and patient advised to avoid long distance driving and to gizzard puller at the first sign of drowsiness. Patient agreed to plan. * Schedule polysomnography +- manual CPAP titration study. * Avoid long distance driving or driving when feeling sleepy. * Avoid sedative and muscle relaxant around bedtime. * Review instructions provided by trained office staff on how to prepare for the sleep study. * Return for follow-up after sleep study completed. Visit Type: In Office Time Spent with Patient (minutes): 38 Provider Statement: I spent 100% of the Face to Face Visit with the patient with greater than 50% spent counseling the patient and coordination of care.
== END 2020-01-30 15:46 | disposition home or self-care (01) ==
LOC: SC 15:45
PROVIDERS: ATTEND Nurse Practitioner Family
DX: G47.10 Hypersomnia, unspecified (principal); G47.8 Other sleep disorders; R41.89 Other symptoms and signs involving cognitive functions and awareness; R06.83 Snoring; Z87.891 Personal history of nicotine dependence
CPT/HCPCS: 99203; G0463; 99212

== ENCOUNTER 2020-02-28 20:34 | Outpatient (CLI) | payer MEDICARE, OTHER | END 2020-02-28 20:35 | disposition home or self-care (01) | LOC: SC 20:34 | PROVIDERS: ATTEND Nurse Practitioner Family | DX: G47.33 Obstructive sleep apnea (adult) (pediatric) (principal); G47.61 Periodic limb movement disorder | CPT/HCPCS: 95810 ==

== ENCOUNTER 2020-03-07 13:05 | Outpatient (CLI) | payer MEDICARE, OTHER ==
--- NOTE | 2020-03-07 13:40 | SLEEP CARE CONSULTATION ---
Information from patient questionnaire entered by Kendra Loza. I have reviewed and concur with the information entered by Kendra Loza. This document represents the service I personally performed and the decisions made by me, Viviana Saez ARNP. History of Present Illness Service Date and Time: 03/07/2020 1305 Initial [place] Sleepiness Scale score: 5 (in 2020) Current [place] Sleepiness Scale score: 3 Additional HPI information: MARI GERMAIN returns for follow up and results of the recently performed polysomnography. She was found to have mild obstructive sleep apnea with an average AHI of 7.9 and daly oxygen saturation of 85%. She had moderate PLMs seen as well during the study. I explained the pathophysiology behind obstructive sleep apnea. We then spent quite a bit of time discussing different treatment options. For mild obstructive sleep apnea, surgery and oral appliance are alternatives to nasal CPAP therapy but in moderate or severe cases, nasal CPAP is the most effective and reliable treatment. Because apnea is primarily in supine position, then positional management therapy could be effective. Methods discussed such as positioning with pillows, using a T-shirt with tennis balls in the back, and shown commercial products that have a pillow format on back to prevent supine sleep. I reviewed the impact of weight changes on sleep apnea and strongly recommended losing weight. After some discussion, the patient opted to go with the nasal CPAP therapy. Nasal autoCPAP set at 4-15 cmH20 will be ordered with rationale explained. A manual titration study will be ordered if unable to find optimal pressure with office adjustments. I explained how CPAP machine works with sample devices [employer] and [employer] [id number] and what to expect when using the machine. Using CPAP every night in order to get used to it was emphasized. Patient advised to put CPAP mask on before getting into bed so as not to fall asleep without CPAP. To assist acclimation to CPAP use, it could also be used for a short time during day while reading or watching TV. The patient was instructed to call the CPAP supplier to discuss any mechanical problem that may occur. If the mask given is uncomfortable or is difficult to keep on through the night even with adjustment, contact the CPAP supplier as many will replace with another mask style if notified before 30 days. If snoring or perceives is not getting enough air or too much air from the machine, notify this office. AASM patient education PAP tips and Non Pap treatment pamphlets reviewed and given to patient. Patient was cautioned about risks of drowsy driving until sleepiness symptoms resolve. Sleep Study - Results Type of Sleep Study: Polysomnography Prior sleep studies: No Polysomnography/Home Sleep Study results: IMPRESSION: The quality of the study is good. The patient had reduced sleep efficiency due to frequent awakenings after the sleep onset. The sleep stage distribution was normal. Respiratory monitoring showed mild obstructive sleep apnea-hypopnea (AHI = 7.9) associated with oxyhemoglobin desaturation and mild hypoxia (daly oxygen saturation of 85%) but not sleep fragmentation. The patient slept almost exclusively in supine position (supine AHI = 8.5; non-supine = 0.00). Snore was moderate to loud in intensity. There was moderate periodic leg movement of sleep not associated with sleep fragmentation. Cardiac rhythm was sinus rhythm with frequent premature atrial and ventricular contractions, occasionally in bigeminy and trigeminy. No abnormal behavior (parasomnia) observed during the night. Allergies and Home Medications Drug allergies reviewed: Yes (see list in chart) Home medication list reviewed: Yes (no changes) Review of Systems Review of systems same as previous: Yes (no changes) Physical Exam Heart Rate: 52 O2 Saturation: 93 Height: 4 ft 11 in Weight: 114 lb Body Mass Index: 23.0 BMI Classification: Healthy weight Impression and Plan 1. Obstructive Sleep Apnea-Hypopnea Syndrome, mild, with lowest oxygen saturation of 85%. Obviously this is the cause of the patients symptoms of unrefreshed sleep, and excessive daytime sleepiness. Positive pressure therapy could benefit her depression and RLS. As mentioned above, the patient will be started on nasal autoCPAP therapy with pressure set at 4-15 cmH2O. A manual titration study will be completed if unable to find optimal treatment pressure with office adjustments. Compliance guidelines also reviewed. A copy of compliance guidelines will be given for reference at check out. Because the apnea is more severe supine, I instructed to avoid sleeping supine using pillow positioning until able to start CPAP use. 2. Periodic limb movement, moderate, that did not fragment patients sleep. Periodic limb movement of sleep (PLMS) is characterized by episodes of repetitive limb movements that occur during sleep and usually involve the lower limbs. Patient has a history of RLS. * Nasal auto CPAP therapy, pressure at 4-15 cm H2O. * Avoid supine sleep until using CPAP. * The patient is again cautioned about driving until sleepiness completely resolves. * Return one month after CPAP obtained. I will assess response to therapy and compliance at that time. Visit Type: In Office Time Spent with Patient (minutes): 19 Provider Statement: I spent 100% of the Face to Face Visit with the patient with greater than 50% spent counseling the patient and coordination of care.
== END 2020-03-07 13:06 | disposition home or self-care (01) ==
LOC: SC 13:05
PROVIDERS: ATTEND Nurse Practitioner Family
DX: G47.33 Obstructive sleep apnea (adult) (pediatric) (principal); G47.61 Periodic limb movement disorder
CPT/HCPCS: 99213; G0463; 99212

== ENCOUNTER 2020-04-09 08:00 | Outpatient (CLI) | payer MEDICARE, OTHER ==
[2020-04-09 15:54] LABS: ALBUMIN/GLOBULIN RATIO 1.5 (1.0-2.2); ALKALINE PHOSPHATASE 114 IU/L (42-121); ALT ALANINE AMINOTRANSFERASE 29 IU/L (10-60); AST ASPARTATE AMINOTRANSFERASE 28 IU/L (10-42); BILIRUBIN,TOTAL 0.6 mg/dL (0.2-1.0); BUN - BLOOD UREA NITROGEN 31 mg/dL (6-20); CALCIUM 9.2 mg/dL (8.5-10.3); CARBON DIOXIDE - CO2 27 mmol/L (21-32); CHLORIDE 105 mmol/L (101-111); CHOL/HDL RATIO 3.3 (<4.4); CHOLESTEROL 258 mg/dL; CREATININE 0.8 mg/dL (0.4-1.0); GLUCOSE 103 mg/dL (70-100); HDL CHOLESTEROL 79 mg/dL; LDL CHOLESTEROL,CALCULATED 160 mg/dL; TOTAL PROTEIN 6.6 g/dL (6.7-8.2); VLDL CHOLESTEROL 19 mg/dL
== END 2020-04-09 23:59 | disposition home or self-care (01) ==
LOC: LAB 08:00
PROVIDERS: ATTEND Physician Assistant Medical
DX: E78.5 Hyperlipidemia, unspecified (principal); E03.9 Hypothyroidism, unspecified
CPT/HCPCS: 36415; 80053; 80061; 83721; 84443

== ENCOUNTER 2020-05-11 08:00 | Outpatient (CLI) | payer MEDICARE, OTHER | END 2020-05-11 23:59 | disposition home or self-care (01) | LOC: LAB.WCP 08:00 | PROVIDERS: ATTEND Physician Assistant Medical | DX: R06.09 Other forms of dyspnea (principal); Z20.822 Contact with and (suspected) exposure to COVID-19 ==

== ENCOUNTER 2020-06-13 13:44 | Outpatient (CLI) | payer MEDICARE, OTHER ==
--- NOTE | 2020-06-13 14:24 | SLEEP CARE CONSULTATION ---
Information from patient questionnaire entered by Kendra Loza. I have reviewed and concur with the information entered by Kendra Loza. This document represents the service I personally performed and the decisions made by me, Viviana Saez ARNP. History of Present Illness Service Date and Time: 06/13/2020 1344 Previous diagnosis: Mild, Obstructive Sleep Apnea-Hypopnea Syndrome AHI: 7.9 Reason for follow up: first compliance (04/25/20) Equipment type: CPAP Equipment obtained from: [employer] Mask style: Nasal Backup mask available: No Last cushion change: 1 month Prior sleep studies: No Year and Where: 2019 [facility] Type of Sleep Study: Polysomnography HPI additional information: MARI GERMAIN was diagnosed to have mild, AHI 7.9, obstructive sleep apnea- hypopnea syndrome and returned today for CPAP therapy first compliance follow- up. CPAP Compliance Data - Data Reviewed with Patient Average duration of nightly device use: 4 h 1 min Compliance rate %: 16.7 Current pressure setting (cmH2O): 4-15 Humidity settin Heated hose settin Average residual AHI: 6.0 Average large leak: 1 h 52 min 52 sec Compliance data discussion: She has urinary incontinence issues and using the CPAP mask has made this more difficult. She has not been using it for the last 4 days. They changed out one machine for another that was easier to use. She is tolerating coordinating CPAP therapy with her incontinence issues. Subjective Missed days of use due to: reports: other (incontinence issues limiting tolerance; claustrophobia) Patient concerns: reports: mask discomfort. denies: aerophagia, air blowing in eyes, mask leak noise, condensation in mask/hose, nasal congestion, dry mouth, n ose, throat, epistaxis, other Observed to snore while using device: No Current pressure setting perceived as: comfortable On therapy, patient: reports: other (She feels she is getting better sleep after taking the mask off). denies: sleeping better, awakening more refreshed, being more awake and alert during the day, more rested overall Initial [place] Sleepiness Scale score: 5 (in 2019) Current [place] Sleepiness Scale score: 3 Allergies and Home Medications Home medication list reviewed: Yes (no changes) Review of Systems Review of systems same as previous: Yes (no changes) Physical Exam Heart Rate: 87 O2 Saturation: 95 Height: 4 ft 11 in Weight: 115 lb Body Mass Index: 23.2 BMI Classification: Healthy weight Impression and Plan 1. Obstructive Sleep Apnea-Hypopnea Syndrome, mild, with poor treatment compliance and fair apnea control with an elevated residual AHI. The patient is not able to tolerate the CPAP machine because she has to get up several times a night for the bathroom and she has to go quickly or she has accidents. She feels she sleeps better without the mask on. She would like to stop using the CPAP machine. I reviewed her sleep study and she did not sleep on her side for her sleep study but she states she rarely sleeps on her back because of pain from rods in her back. She would like to try positional therapy. I think this could work for her and we will discontinue the CPAP therapy. Follow up is scheduled for one-two months to check effectiveness. Patient's apnea severity and rationale for treatment to reduce apnea, improve sleep quality and reduce cardiovascular and cerebrovascular events was reviewed. * Discontinue CPAP therapy * Try positional therapy * Return for follow up in 1-2 months, or sooner if concerns arise Counseling Topics: Weight control Visit Type: In Office Time Spent with Patient (minutes): 24 Provider Statement: I spent 100% of the Face to Face Visit with the patient with greater than 50% spent counseling the patient and coordination of care.
== END 2020-06-13 13:45 | disposition home or self-care (01) ==
LOC: SC 13:44
PROVIDERS: ATTEND Nurse Practitioner Family
DX: G47.33 Obstructive sleep apnea (adult) (pediatric) (principal)
CPT/HCPCS: 99213; G0463; 99212

== ENCOUNTER 2020-08-14 14:17 | Emergency (ER) | payer MEDICARE, OTHER ==
--- OUTSIDE RECORDS SUMMARY | 2020-08-14 14:41 | EXTERNAL MEDICAL SUMMARY RPT | Continuity of Care Document ---
:1940 Demographics Phone Unavailable Preferred Language Unknown Marital Status Unknown [employer] Affiliation Unknown Race Unknown Ethnic Group Unknown Author Organization [facility] Address [address] [place] [address] Phone Allergies Encounters Medications Problems Results
--- NOTE | 2020-08-14 15:13 | ED Physician Documentation ---
PD HPI SKIN - Stated complaint Stated Complaint: RT ARM INJ - Chief complaint Chief Complaint: Laceration - History obtained from History obtained from: Patient - Additional information Additional information: Patient comes emergency department chief complaint of laceration to right forearm after fall 3 nights ago. Patient states that she was in the kitchen when she turned and lost her balance. She fell against the adjacent counter and did not hit her head or lose consciousness but did lacerate her forearm. She states that she did not think it was any big deal and bandaged up, but her friends told her she should come to the ED today to get it checked out. Patient denies any erythema or swelling. No drainage. No fevers or chills or red streaking. No other complaints at this time. Patient is up-to-date on tetanus. Review of Systems Ten Systems: 10 systems reviewed and negative Constitutional: reports: Reviewed and negative Eyes: reports: Reviewed and negative Ears: reports: Reviewed and negative Nose: reports: Reviewed and negative Throat: reports: Reviewed and negative Cardiac: reports: Reviewed and negative Respiratory: reports: Reviewed and negative GI: reports: Reviewed and negative : reports: Reviewed and negative Skin: reports: Laceration (s) Musculoskeletal: reports: Reviewed and negative Neurologic: reports: Reviewed and negative Psychiatric: reports: Reviewed and negative Endocrine: reports: Reviewed and negative Immunocompromised: reports: Reviewed and negative PD PAST MEDICAL HISTORY - Past Medical History Past Medical History: Yes Cardiovascular: High cholesterol Respiratory: None Neuro: None Endocrine/Autoimmune: HyPOthyroidism, Other GI: None 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 : Incontinence HEENT: None Psych: Anxiety Musculoskeletal: Osteoarthritis, Scoliosis, Chronic back pain Derm: Rosacea - Past Surgical History Past Surgical History: Yes General: Colonoscopy Ortho: Spine surgery /ECG TECHNICIAN: Tubal ligation, Hysterectomy, Other HEENT: Tonsil/Adenoidectomy - Present Medications Home Medications: Ambulatory Orders Medication Instructions Recorded Confirmed Multivitamin [Multivitamins] 1 each PO DAILY 09/02/12 08/14/20 [place]-3 Fatty Acids [Fish Oil] 500 mg PO DAILY 09/02/12 08/14/20 Pramipexole [Mirapex] 0.25 mg PO DAILY 09/02/12 08/14/20 Ubidecarenone [Co Q-10] 10 mg PO DAILY 09/02/12 08/14/20 Ascorbic Acid [Vitamin C] 1,000 mg PO DAILY 05/19/18 08/14/20 Calcium Carbonate [Calcium] 1,000 mg PO BID 05/19/18 08/14/20 Cholecalciferol (Vitamin D3) 1 cap PO BID 05/19/18 08/14/20 [Vitamin D3] Levothyroxine Sodium 50 mcg PO DAILY 05/19/18 08/14/20 Red Yeast Rice 1 cap PO BID 05/19/18 08/14/20 Turmeric Root Extract [Turmeric 1 cap PO BID 05/19/18 08/14/20 Curcumin] Vitamin E 1 cap PO BID 05/19/18 08/14/20 - Allergies Allergies/Adverse Reactions: Allergies Allergy/AdvReac Type Severity Reaction Status Date / Time erythromycin base AdvReac Intermediate Nausea Verified 08/14/20 14:19 [Erythromycin Base] hydrocodone bitartrate * AdvReac Intermediate Nausea Verified 08/14/20 14:19 [From Vicodin] metronidazole AdvReac Intermediate Nausea Verified 08/14/20 14:19 morphine AdvReac Intermediate Nausea Verified 08/14/20 14:19 Penicillins AdvReac Intermediate Nausea Verified 08/14/20 14:19 sulfamethoxazole AdvReac Intermediate Nausea Verified 08/14/20 14:19 [From Bactrim] tramadol AdvReac Intermediate Nausea Verified 08/14/20 14:19 trimethoprim [From Bactrim] AdvReac Intermediate Nausea Verified 08/14/20 14:19 - Social History Does the pt smoke?: No Smoking Status: Former smoker Does the pt drink ETOH?: No Does the pt have substance abuse?: No - Immunizations Immunizations are current?: Yes - POLST Patient has POLST: No PD ED PE NORMAL - Vitals Vital signs reviewed: Yes - General General: Alert and oriented X 3, No acute distress - HEENT HEENT: Atraumatic, PERRL, EOMI, Moist mucous membranes - Neck Neck: Supple, no meningeal sign - Cardiac Cardiac: Strong equal pulses - Derm Derm: Warm and dry, No rash, Other (2 cm x 2 cm right angle flap laceration which appears subacute on flexor surface of right forearm and mid forearm. Wound edges show granulation process that is well underway. Tissues are fused. No erythema, induration, fluctuance, or drainage.) - Extremities Extremities: No deformity, No edema - Neuro Neuro: Alert and oriented X 3, taker away 2-12 intact, Normal speech, Other (Grossly intact otherwise.) - Psych Psych: Normal mood, Normal affect Results - Vitals Vitals: Vital Signs - 24 hr 08/14/20 14:20 Temperature 37.2 C Heart Rate 90 Respiratory 18 Rate O2 Saturation 97 Oxygen O2 Source Room air PD MEDICAL DECISION MAKING - ED course Complexity details: considered differential, d/w patient ED course: I discussed with the patient that her wound does not show signs of infection, and that at 3 days out, it is too late to do any repair. The patient really is not interested in repair anyway and states she is only here because her friend sent her in. The wound appears clean and well cared for, and we have discussed the continuation of triple antibiotic ointment until the wound dries up, at which time patient may leave it open to air. The patient is up-to-date on tetanus, and we have discussed the usual indications for follow-up for return. Departure - Departure Disposition: 01 Home, Self Care Clinical Impression: Laceration Condition: Stable Instructions: ED Laceration All
[2020-08-14 15:40] VITALS: BP 121/68
== END 2020-08-14 15:47 | disposition home or self-care (01) ==
LOC: ED 14:17
DX: S51.811A Laceration without foreign body of right forearm, initial encounter (principal); W01.198A Fall on same level from slipping, tripping and stumbling with subsequent striking against other object, initial encounter; Y93.01 Activity, walking, marching and hiking; Y92.000 Kitchen of unspecified non-institutional (private) residence as the place of occurrence of the external cause; Z87.891 Personal history of nicotine dependence
CPT/HCPCS: 99281; 99282

== ENCOUNTER 2020-09-24 14:06 | Outpatient (CLI) | payer MEDICARE, OTHER ==
[2020-09-24 14:18] LABS: BASOPHILS % (AUTO) 0.4 %; EOSINOPHILS % (AUTO) 0.8 %; HCT - HEMATOCRIT 42.1 % (37.0-47.0); HGB - HEMOGLOBIN 13.8 g/dL (12.0-16.0); LYMPHOCYTES # (AUTO) 1.5 10^3/uL (1.5-3.5); LYMPHOCYTES % (AUTO) 29.1 %; MEAN CORPUSCULAR HEMOGLOBIN 28.5 pg (27.0-31.0); MEAN CORPUSCULAR HGB CONC 32.8 g/dL (32.0-36.0); MEAN PLATELET VOLUME 9.5 fL (7.9-10.8); MONOCYTES # (AUTO) 0.3 10^3/uL (0.0-1.0); MONOCYTES % (AUTO) 6.8 %; NEUTROPHILS # (AUTO) 3.1 10^3/uL (1.5-6.6); NEUTROPHILS % (AUTO) 62.7 %; PLT - PLATELET COUNT 217 10^3/uL (130-450); RED BLOOD COUNT 4.84 10^6/uL (4.20-5.40); RED CELL DISTRIBUTION WIDTH 13.3 % (12.0-15.0)
== END 2020-09-24 14:07 | disposition home or self-care (01) ==
LOC: LAB 14:06
PROVIDERS: ATTEND Orthopaedic Surgery
DX: Z01.812 Encounter for preprocedural laboratory examination (principal)
CPT/HCPCS: 36415; 85025; 85651; 86140

== ENCOUNTER 2020-11-20 16:19 | Outpatient (CLI) | payer MEDICARE, OTHER ==
[2020-11-20 16:52] LABS: BASOPHILS % (AUTO) 0.5 %; EOSINOPHILS # (AUTO) 0.1 10^3/uL (0.0-0.7); HCT - HEMATOCRIT 40.5 % (37.0-47.0); LYMPHOCYTES # (AUTO) 1.5 10^3/uL (1.5-3.5); MEAN CORPUSCULAR HEMOGLOBIN 28.1 pg (27.0-31.0); MEAN CORPUSCULAR HGB CONC 32.1 g/dL (32.0-36.0); MEAN CORPUSCULAR VOLUME 87.7 fL (81.0-99.0); MEAN PLATELET VOLUME 9.5 fL (7.9-10.8); MONOCYTES # (AUTO) 0.4 10^3/uL (0.0-1.0); MONOCYTES % (AUTO) 6.7 %; NEUTROPHILS # (AUTO) 4.3 10^3/uL (1.5-6.6); NEUTROPHILS % (AUTO) 68.5 %; PLT - PLATELET COUNT 218 10^3/uL (130-450); RED BLOOD COUNT 4.62 10^6/uL (4.20-5.40); RED CELL DISTRIBUTION WIDTH 13.6 % (12.0-15.0); WHITE BLOOD COUNT 6.3 x10^3/uL (4.8-10.8)
[2020-11-20 17:22] LABS: THYROID STIMULATING HORMONE 1.42 uIU/mL (0.34-5.60)
== END 2020-11-20 16:20 | disposition home or self-care (01) ==
LOC: LAB 16:19
PROVIDERS: ATTEND Physician Assistant Medical
DX: E03.9 Hypothyroidism, unspecified (principal); K21.9 Gastro-esophageal reflux disease without esophagitis
CPT/HCPCS: 36415; 84443; 85025

== ENCOUNTER 2020-12-27 13:02 | Outpatient (CLI) | payer MEDICARE, OTHER ==
--- NOTE | 2020-12-31 08:49 | Mammography Report ---
BILATERAL DIGITAL SCREENING MAMMOGRAM 3D/2D: 12/27/2020 CLINICAL: Routine screening. Comparison is made to exams dated: 11/23/2019 mammogram, 05/13/2018 mammogram, 04/22/2016 mammogram, and 02/11/2016 mammogram - [facility]. There are scattered fibroglandular elements in both breasts. No significant masses, calcifications, or other findings are seen in either breast. There has been no significant interval change. IMPRESSION: NEGATIVE There is no mammographic evidence of malignancy. A 1 year screening mammogram is recommended. This exam was interpreted at Station ID: [id number]. NOTE: For mammograms, a report in lay terms will be sent to the patient. Approximately 15% of breast malignancies will not be visualized mammographically. In the management of a palpable breast mass, a negative mammogram must not discourage biopsy of a clinically suspicious lesion. Electronically Signed By: Geraldine dowd/penrad:12/28/2020 09:16:07 ACR BI-RADS Category 1: Negative 3341F PARENCHYMAL PATTERN: (A) - The breast(s) demonstrate(s) scattered fibroglandular densities. BI-RADS CATEGORY: (1) - 1 RECOMMENDATION: (ANNUAL) - Recommend routine annual screening mammography. [id number] 1 year screening LATERALITY: (B)
== END 2020-12-27 13:03 | disposition home or self-care (01) ==
LOC: DI 13:02
DX: Z12.31 Encounter for screening mammogram for malignant neoplasm of breast (principal)

== ENCOUNTER 2021-02-27 15:56 | Emergency (ER) | payer MEDICARE, OTHER ==
[2021-02-27 16:06] VITALS: BP 162/66
[2021-02-27] MEDS ORDERED: KETOROLAC 60 MG/2 ML VIAL IM STA (17:01)
--- NOTE | 2021-02-27 17:05 | ED Physician Documentation ---
History of Present Illness - Stated complaint Stated Complaint: NECK PX/STIFFNESS - Chief complaint Chief Complaint: Neuro - History obtained from History obtained from: Patient - History of Present Illness Pain level max: 4 Pain level now: 3 - Additonal information Additional information: 81-year-old female presents to the emergency department with neck stiffness for the past 3 to 4 months. Worse with movement, better with rest. She states that she called her primary care provider for an appointment today. She states that she was told by the nurse to go to the emergency department for evaluation. Patient has no numbness or tingling. No loss of bowel or bladder control. No fevers. No chills. Has not taken anything for pain. She states that the neck surgery was many years ago. Review of Systems Constitutional: denies: Fever, Chills GI: denies: Vomiting, Diarrhea : denies: Dysuria, Frequency, Hesitancy, Unable to Void, Incontinent Skin: denies: Rash Musculoskeletal: reports: Neck pain. 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: Tubal ligation, Hysterectomy, Other HEENT: Tonsil/Adenoidectomy - Present Medications Home Medications: Ambulatory Orders Medication Instructions Recorded Confirmed Multivitamin [Multivitamins] 1 each PO DAILY 09/02/12 02/27/21 [place]-3 Fatty Acids [Fish Oil] 500 mg PO DAILY 09/02/12 02/27/21 Pramipexole [Mirapex] 0.25 mg PO DAILY 09/02/12 02/27/21 Ubidecarenone [Co Q-10] 10 mg PO DAILY 09/02/12 02/27/21 Ascorbic Acid [Vitamin C] 1,000 mg PO DAILY 05/19/18 02/27/21 Calcium Carbonate [Calcium] 1,000 mg PO BID 05/19/18 02/27/21 Cholecalciferol (Vitamin D3) 1 cap PO BID 05/19/18 02/27/21 [Vitamin D3] Levothyroxine Sodium 50 mcg PO DAILY 05/19/18 02/27/21 Red Yeast Rice 1 cap PO BID 05/19/18 02/27/21 Turmeric Root Extract [Turmeric 1 cap PO BID 05/19/18 02/27/21 Curcumin] Vitamin E 1 cap PO BID 05/19/18 02/27/21 Meloxicam [Mobic] 7.5 mg PO BID PRN #20 tablet 02/27/21 methocarbamoL [Robaxin] 500 mg PO Q8H PRN #20 tablet 02/27/21 - Allergies Allergies/Adverse Reactions: Allergies Allergy/AdvReac Type Severity Reaction Status Date / Time erythromycin base AdvReac Intermediate Nausea Verified 02/27/21 16:02 [Erythromycin Base] hydrocodone bitartrate * AdvReac Intermediate Nausea Verified 02/27/21 16:02 [From Vicodin] metronidazole AdvReac Intermediate Nausea Verified 02/27/21 16:02 morphine AdvReac Intermediate Nausea Verified 02/27/21 16:02 Penicillins AdvReac Intermediate Nausea Verified 02/27/21 16:02 sulfamethoxazole AdvReac Intermediate Nausea Verified 02/27/21 16:02 [From Bactrim] tramadol AdvReac Intermediate Nausea Verified 02/27/21 16:02 trimethoprim [From Bactrim] AdvReac Intermediate Nausea Verified 02/27/21 16:02 - Social History Does the pt smoke?: No Smoking Status: Never smoker Does the pt drink ETOH?: No Does the pt have substance abuse?: No - Immunizations Immunizations are current?: Yes - POLST Patient has POLST: No PD ED PE NORMAL - Vitals Vital signs reviewed: Yes - General General: Alert and oriented X 3, No acute distress - HEENT HEENT: Moist mucous membranes - Neck Neck: Supple, no meningeal sign, Other (paraspinal muscle spasm. no midline tenderness. ) - Cardiac Cardiac: RRR - Respiratory Respiratory: No respiratory distress, Clear bilaterally - Abdomen Abdomen: Soft, Non tender, Non distended - Back Back: No spinal TTP - Derm Derm: Warm and dry - Extremities Extremities: No tenderness to palpate, Normal ROM s pain - Neuro Neuro: Alert and oriented X 3, aoc director combat operations officer 2-12 intact, No motor deficit, No sensory deficit, Normal speech Eye Opening: Spontaneous Motor: Obeys Commands Verbal: Oriented GCS Score: 15 - Psych Psych: Normal mood, Normal affect Results - Vitals Vitals: Vital Signs - 24 hr 02/27/21 16:02 Temperature 36.6 C Heart Rate 79 Respiratory 18 Rate Blood Pressure 162/66 H O2 Saturation 94 Oxygen O2 Source Room air PD MEDICAL DECISION MAKING - ED course Complexity details: considered differential, d/w patient ED course: Patient is an 81-year-old female who presents with neck pain. This been ongoing for the past 3 months. We discussed imaging, MRI is not available. Does not seem likely that hardware would have shifted causing her symptoms. Symptoms seem much more compatible with muscle spasm. We will trial her on pain medication muscle relaxants. Neuro vascularly intact. No neurological deficits. No evidence of cauda equina, epidural abscess. Patient counseled regarding signs and symptoms for which I believe and urgent re-evaluation would be necessary. Patient with good understanding of and agreement to plan and is comfortable going home at this time This document was made in part using voice recognition software. While efforts are made to proofread this document, sound alike and grammatical errors may occur. Departure - Departure Disposition: 01 Home, Self Care Clinical Impression: Neck muscle spasm Condition: Good Instructions: ED Spasm Neck No Injury Follow-Up: Mariel Lui PA-C [Primary Care Provider] - Within 1 week Prescriptions: Meloxicam [Mobic] 7.5 mg PO BID PRN #20 tablet PRN Reason: Pain methocarbamoL [Robaxin] 500 mg PO Q8H PRN #20 tablet PRN Reason: muscle spasm Comments: Your prescriptions were sent to [facility] in [place]. Please follow-up with your doctor for further care. Return if you worsen. Do not drive or operate heavy machinery while taking the Robaxin. Discharge Date/Time: 02/27/21 17:16
== END 2021-02-27 17:16 | disposition home or self-care (01) ==
LOC: ED 15:56
DX: M62.838 Other muscle spasm (principal); M54.2 Cervicalgia
CPT/HCPCS: 96372; 99283

== ENCOUNTER 2021-04-23 16:44 | Outpatient (CLI) | payer MEDICARE, OTHER ==
--- NOTE | 2021-04-23 18:31 | Ultrasound Report ---
PROCEDURE: Duplex Ext Veins Right INDICATIONS: DVT TECHNIQUE: Real-time imaging, as well as color and pulse Doppler interrogation, were performed of the lower extr emity deep veins from the inguinal ligament to the popliteal fossa. COMPARISON: 11/06/2019. FINDINGS: The deep veins are normally compressible, and free of intraluminal thrombus. Color and pu lse Doppler demonstrate normal phasic intraluminal flow. There is normal augmentation response to di stal compression maneuver. There is intraluminal filling defect seen within a short segment of proximal great saphenous vein whi ch was also noted on 11/06/2019 study and suggestive of chronic superficial venous thrombosis. Prominent right inguinal lymph node measures 13 mm in short axis diameter is seen. IMPRESSION: 1. No evidence of DVT in visualized right lower extremity veins. 2. Suggestion of chronic superficial venous thrombosis involving a short segment of proximal great sa phenous vein. 3. Mildly enlarged right inguinal lymph node which may represent reactive inflammatory lymphadenopath y. Reviewed by: Elian Moya MD on 04/23/2021 6:30 PM PST Approved by: Elian Moya MD on 04/23/2021 6:30 PM PST Station ID: [id number]
== END 2021-04-23 16:45 | disposition home or self-care (01) ==
LOC: DI 16:44
PROVIDERS: ATTEND Physician Assistant
DX: M79.661 Pain in right lower leg (principal); R59.0 Localized enlarged lymph nodes

== ENCOUNTER 2021-05-10 14:18 | Outpatient (CLI) | payer MEDICARE, OTHER ==
[2021-05-10 14:58] LABS: BASOPHILS % (AUTO) 0.3 %; EOSINOPHILS # (AUTO) 0.1 10^3/uL (0.0-0.7); EOSINOPHILS % (AUTO) 1.4 %; HCT - HEMATOCRIT 40.9 % (37.0-47.0); HGB - HEMOGLOBIN 13.3 g/dL (12.0-16.0); LYMPHOCYTES # (AUTO) 1.4 10^3/uL (1.5-3.5); LYMPHOCYTES % (AUTO) 22.5 %; MEAN CORPUSCULAR HEMOGLOBIN 27.4 pg (27.0-31.0); MEAN CORPUSCULAR HGB CONC 32.5 g/dL (32.0-36.0); MEAN CORPUSCULAR VOLUME 84.3 fL (81.0-99.0); MEAN PLATELET VOLUME 9.5 fL (7.9-10.8); MONOCYTES # (AUTO) 0.4 10^3/uL (0.0-1.0); MONOCYTES % (AUTO) 6.4 %; NEUTROPHILS # (AUTO) 4.3 10^3/uL (1.5-6.6); NEUTROPHILS % (AUTO) 69.1 %; PLT - PLATELET COUNT 230 10^3/uL (130-450); RED BLOOD COUNT 4.85 10^6/uL (4.20-5.40); RED CELL DISTRIBUTION WIDTH 13.7 % (12.0-15.0); WHITE BLOOD COUNT 6.3 x10^3/uL (4.8-10.8)
[2021-05-10 15:19] LABS: % IRON SATURATION 15 % (20-50); IRON 54 ug/dL (28-170); TOTAL IRON BINDING CAPACITY 367 ug/dL (250-450); TRANSFERRIN 262 mg/dL (192-382)
[2021-05-10 15:21] LABS: THYROID STIMULATING HORMONE 2.03 uIU/mL (0.34-5.60)
[2021-05-10 15:23] LABS: FREE T4 (FREE THYROXINE) 1.06 ng/dL (0.58-1.64)
[2021-05-10 15:27] LABS: FERRITIN 50.4 ng/mL (11.0-306.8)
[2021-05-13 13:21] LABS: ANA SCREEN NEGATIVE (NEGATIVE)
== END 2021-05-10 14:19 | disposition home or self-care (01) ==
LOC: LAB 14:18
PROVIDERS: ATTEND Nurse Practitioner Family
DX: L64.8 Other androgenic alopecia (principal)
CPT/HCPCS: 36415; 81599; 82306; 82728; 83540; 84439; 84443; 84466; 84630; 85025; 86038